=== PATIENT | female | born 1935 | race Caucasian/White ===

== ENCOUNTER 2024-02-16 12:12 | Emergency (ER) | payer MEDICARE, SELFPAY ==
[2024-02-16 12:15] VITALS: BP 190/92; PULSE 71; TEMP 36.5; O2SAT 95; BMI 33.6
--- NOTE | 2024-02-16 12:23 | PC.NURSE ---
Complains of pain to right lower back that radiates down right leg. Skin to right leg pink and warm, no redness, swelling or bruising noted.
--- NOTE | 2024-02-16 12:26 | XR_ITS ---
The [address] [address] Patient Name: ROXANNA NICOLE MRN: [id number] date: 1935 Sex: F Assigned Patient Location: ER Current Patient Location: ED.MAIN Accession/Order Number: [id number] Exam Date: 02/16/2024 12:45 Report Date: 02/16/2024 13:48 At the request of: RYANN ARITA Procedure: XR lumbar spine 2-3V EXAM: XR lumbar spine 2-3V HISTORY: pain COMPARISON: Lumbar spine x-ray, CT 11/02/2020. TECHNIQUE: AP, lateral, L5-S1 spot view lumbar spine. FINDINGS: No fracture or suspicious bone lesion. Diffuse degenerative changes similar to previous with most significant disc narrowing T12-L1 and L1-2. Facet sclerosis most prominent lower lumbar spine. No developing subluxation. Visualized sacrum and SI joints unremarkable. Transitional appearance L5. XR/XR lumbar spine 2-3V IMPRESSION: Stable appearance of lumbar spine plain films without fracture or suspicious bone lesion. 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 Electronically authenticated by: YELENA BRYSON Date: 02/16/2024 13:48
--- NOTE | 2024-02-16 12:26 | XR_ITS ---
The [address] [address] Patient Name: ROXANNA NICOLE MRN: [id number] date: 1935 Sex: F Assigned Patient Location: ER Current Patient Location: ER Accession/Order Number: [id number] Exam Date: 02/16/2024 12:45 Report Date: 02/16/2024 13:54 At the request of: RYANN ARITA Procedure: XR hip RT 2V w/ pelvis EXAM: XR hip RT 2V w/ pelvis HISTORY: pain COMPARISON: None. TECHNIQUE: Supine AP pelvis, AP lateral right hip FINDINGS: No fracture or suspicious bone lesion. Hip DJD bilateral with prominent osteophytes off the right left femoral head. Hip joint space narrowing superiorly on the left is mild. Minor trochanteric spurring. No significant SI joint pathology. Soft tissue vascular calcification. Lower abdominal pelvic soft tissues and gas pattern unremarkable. XR/XR hip RT 2V w/ pelvis IMPRESSION: No fracture or suspicious bone lesion. Bilateral hip DJD with prominent osteophytes. Left and right mild hip joint space narrowing. Electronically authenticated by: YELENA BRYSON Date: 02/16/2024 13:54
[2024-02-16] MEDS: TRAMADOL HCL 50 MG TABLET PO (12:35)
[2024-02-16] MEDS: KETOROLAC TROMETHAMINE 30 MG/ML VIAL 15 MG IM (12:35)
[2024-02-16 13:22] VITALS: BP 158/84; PULSE 52; O2SAT 95
--- NOTE | 2024-02-16 13:29 | ED_ITS ---
HPI - Extremity Problem General Chief complaint: Extremity Problem, Nontraumatic Stated complaint: BACK PAIN/LOWER EXTREMITY PAIN Time Seen by Provider: 02/16/24 12:18 Source: patient Mode of arrival: ambulance History of Present Illness HPI Narrative: The patient is coming to us with a right-sided back pain radiating down to her posterior aspect of the thigh, patient mentioned that this pain started while she was getting an ultrasound done almost 3 days ago when she was sleep on a hard surface By the time she got up she was having this pain and she did not try anything [id number] for the pain but she has not been able to ambulate with it Patient have no history of fall or trauma, Related Data Home Medications ?Medication ?Instructions ?Recorded ?Confirmed dexamethasone 4 mg tablet 4 mg PO DAILY 02/16/24 02/16/24 duloxetine 20 mg capsule,delayed 20 mg PO QPM 02/16/24 02/16/24 release ezetimibe 10 mg tablet 10 mg PO DAILY 02/16/24 02/16/24 famotidine 40 mg tablet 40 mg PO QPM 02/16/24 02/16/24 omeprazole 40 mg capsule,delayed 40 mg PO QAM 02/16/24 02/16/24 release Previous Rx's ?Medication ?Instructions ?Recorded diclofenac sodium 50 mg 50 mg PO Q12H PRN pain #14 tabs 02/16/24 tablet,delayed release tramadol 50 mg tablet 50 mg PO BID PRN pain 3 days #6 02/16/24 tabs Allergies Allergy/AdvReac Type Severity Reaction Status Date / Time Penicillins Allergy Severe Rash Verified 02/16/24 12:20 Sulfa (Sulfonamide Allergy Severe Hives Verified 02/16/24 12:20 Antibiotics) Review of Systems ROS Status of ROS 10 or more systems reviewed and unremark able except as noted in history and below [facility] Medical History (Updated 02/16/24 @ 14:05 by Maryan Choe MD) Arthritis ?M19.90 - Unspecified osteoarthritis, unspecified site (ICD-10) GERD (gastroesophageal reflux disease) ?K21.9 - Gastro-esophageal reflux disease without esophagitis (ICD-10) High cholesterol ?E78.00 - Pure hypercholesterolemia, unspecified (ICD-10) Exam Narrative Exam Narrative: Nurses notes and vital signs reviewed and patient is not hypoxic. General: Well-appearing and in no apparent distress. Skin: Warm, dry, no pallor noted. No rash. Head: Normocephalic, atraumatic. Neck: Supple, non-tender. Eye: Pupils are equal, round and EOMI. No scleral icterus. Ears, Nose, Mouth, and Throat: TM are clear, no nasal mucosal hypertrophy. Oral mucosa is moist, no posterior oropharynx erythema, uvula is mid-line Cardiovascular: Regular Rate and Rhythm without murmur, gallop or rub. Respiratory: No accessory muscle use or respiratory distress. Lungs are clear to auscultation, no wheezing, rales or rhonchi Chest Wall: no tenderness Back: No midline thoracic or lumbar vertebral tenderness. There is only paraspinal muscle tenderness mostly toward the right hip Musculoskeletal: normal ROM, no calf or popliteal tenderness, no lower extremity edema/swelling GI: Abdomen is soft, non-distended. Normal bowel sounds. No masses appreciated. No tenderness to palpation. No rebound, guarding, or rigidity noted. Neurological: A&O x4. No cranial nerve dysfunction observed. . Moves all extremities. Sensation intact. Psychiatric: Cooperative and interactive. Normal mood and affect. Constitutional Vital Signs, click to edit/add: Last Vital Signs Temp 97.7 F 02/16/24 12:15 Pulse 52 L 02/16/24 13:22 Resp 20 02/16/24 13:22 BP 158/84 H 02/16/24 13:22 Pulse Ox 95 02/16/24 13:22 O2 Del Method Room Air 02/16/24 13:22 Course Vital Signs Vital signs: Vital Signs Temperature 97.7 F 02/16/24 12:15 Pulse Rate 71 02/16/24 12:15 Respiratory Rate 18 02/16/24 12:15 Blood Pressure 190/92 H 02/16/24 12:15 Pulse Oximetry 95 02/16/24 12:15 Oxygen Delivery Method Room Air 02/16/24 12:15 Temperature 97.7 F 02/16/24 12:15 Pulse Rate 52 L 02/16/24 13:22 Respiratory Rate 20 02/16/24 13:22 Blood Pressure 158/84 H 02/16/24 13:22 Pulse Oximetry 95 02/16/24 13:22 Oxygen Delivery Method Room Air 02/16/24 13:22 MDM - Extremity (Nontraumatic) MDM Narrative Medical decision making narrative: The patient x-ray of the hip as well as x-ray of the lumbar spine showed no acute pathology She was feeling better after treatment with Toradol and tramadol in the ER She was discharged home with the care of her son and also the patient apparently was able to ambulate better she was instructed about monitoring her symptoms case of any new symptoms she is to come back to the ER The patient is to follow up with primary care physician in next 2-3 days or to return to the emergency department should any of the signs or symptoms worsen or new symptoms develop. The patient agrees with the following Diagnosis and Treatment plan and the patient will be discharged home. Discharge Plan Discharge Chief Complaint: Extremity Problem, Nontraumatic Clinical Impression: Acute hip pain, Back pain Patient Disposition: Home, Self-Care Time of Disposition Decision: 14:04 Condition: Good Prescriptions / Home Meds: New tramadol 50 mg tablet 50 mg PO BID PRN (Reason: pain) 3 Days Qty: 6 0RF diclofenac sodium 50 mg tablet,delayed release (DR/EC) 50 mg PO Q12H PRN (Reason: pain ) Qty: 14 0RF No Action dexamethasone 4 mg tablet 4 mg PO DAILY duloxetine 20 mg capsule,delayed release(DR/EC) 20 mg PO QPM ezetimibe 10 mg tablet 10 mg PO DAILY famotidine 40 mg tablet 40 mg PO QPM omeprazole 40 mg capsule,delayed release(DR/EC) 40 mg PO QAM Print Language: Kinyarwanda Instructions: Back Pain (ED), Hip Pain (ED) Referrals: JOSÉ ANTONIO TRAVIS DO [Primary Care Provider] - 1 week
== END 2024-02-16 14:26 | disposition home or self-care (01) ==
PROVIDERS: Emergency Provider Emergency Medicine; PCP Internal Medicine
DX: M54.9 Dorsalgia, unspecified (principal); M25.551 Pain in right hip
CPT/HCPCS: 72100; 73502; 96372; 99284; J1885